=== PATIENT | female | born 1990 | race Caucasian/White ===

== ENCOUNTER 2018-07-23 05:59 | Inpatient (IN) ==
[2018-07-23] MEDS ORDERED: CITRIC ACID/SODIUM CITRATE 30 ML UDCUP PO ONE (06:35)
[2018-07-23] MEDS ORDERED: FAMOTIDINE 20 MG/2 ML VIAL IV ONE (06:35)
[2018-07-23 06:53] LABS: Basophils # 0.1 10*3/uL (0.0-0.2); Basophils % 0.5 % (0.0-0.8); Eosinophils # 0.1 10*3/uL (0.0-0.87); Eosinophils % 0.9 % (0.00-10.9); Hematocrit 38.2 VOL% (35.7-47.0); Hemoglobin 12.4 GM/DL (12.0-16.0); Immature Granulocytes % 1.1 %; Immature Granulocytes Absolute 0.14 #; Lymphocytes % 22.6 % (21.3-54.2); Mean Corpuscular HGB Conc 32.5 GM/DL (32-36); Mean Corpuscular Volume 90.3 FL (87-102); Mean Platelet Volume 9.6 FL (9.6-12.0); Neutrophils % 68.9 % (38.7-73.9); Platelet Count 361 T/CUMM (130-400); Red Blood Count 4.23 MC/CUMM (3.8-5.5); White Blood Count 13.1 T/CUMM (4-12)
[2018-07-23] MEDS ORDERED: BUPIVACAINE 0.5% 50 ML VIAL ONE (06:56)
[2018-07-23 07:12] LABS: Albumin 2.5 G/DL (3.4-5.0); Bilirubin,Total 0.4 MG/DL (0.2-1.0); Calcium 8.9 MG/DL (8.5-10.1); Osmolality,Calculated 280.1 MOS/KG (273-304); Total Protein 6.4 G/DL (6.4-8.3)
[2018-07-23] MEDS ORDERED: OXYTOCIN/LR 30 UNIT/1,000 ML BAG IV ONE (07:13)
[2018-07-23] MEDS ORDERED: OXYTOCIN 10 UNIT/ML VIAL IM ONE (07:13)
[2018-07-23] MEDS: LACTATED RINGERS 1,000 ML IV SCH ×3 (07:44→20:40)
[2018-07-23] MEDS ORDERED: CLINDAMYCIN INJ 900 MG in PREMIX 1 EACH IV ONE (08:00)
[2018-07-23] MEDS ORDERED: miSOPROStol 200 MCG TABLET ONE (08:10)
[2018-07-23] MEDS ORDERED: METHYLERGONOVINE 0.2 MG/1 ML AMP ONE (08:11)
[2018-07-23 09:35] LABS: Cord Arterial Blood HCO3 25.6 MMOL/L
[2018-07-23 09:39] LABS: Cord Venous Blood HCO3 24.9 MMOL/L; Cord Venous Blood PCO2 45.4 MMHG; Cord Venous Blood PO2 29.3
[2018-07-23 09:51] LABS: Apearance,Urine CLEAR (Clear); Bilirubin,Urine Negative (Negative); Blood, Urine Negative (Negative); Glucose,Urine (UA) Negative (Negative); Ketones,Urine Negative (Negative); Mucus,Urine Occasional /LPF (Occasional); Nitrite,Urine Negative (Negative); Protein,Urine Negative; RBC,Urine 3 /HPF (0-4); Squamous Epithelial Cell,Urine Occasional /HPF (0-10); Urine Color Yellow (Yellow); Urine Specific Gravity 1.013 (1.001-1.035); Urine Urobilinogen < 2.0 EU/DL (0.2-1.0); WBC,Urine <1 /HPF (0-6)
[2018-07-23] MEDS ORDERED: ACETAMINOPHEN 325 MG TABLET PO PRN (09:59)
[2018-07-23] MEDS ORDERED: ONDANSETRON 4 MG/2 ML VIAL IV PRN (09:59)
[2018-07-23] MEDS ORDERED: OXYTOCIN/LR 20 UNIT/1,000 ML BAG IV ONE (09:59)
[2018-07-23] MEDS ORDERED: RHO(D) IMMUNE GLOBULIN 300 MCG SYRINGE IM ONE (10:30)
[2018-07-23] MEDS ORDERED: fentaNYL 100 MCG/2 ML VIAL ONE (10:34)
[2018-07-23] MEDS ORDERED: MIDAZOLAM 2 MG/2 ML VIAL ONE (10:34)
[2018-07-23] MEDS ORDERED: SODIUM CHLORIDE 0.9% 100 ML IV ONE (10:34)
[2018-07-23] MEDS ORDERED: MORPHINE 10 MG/10 ML VIAL ONE (10:35)
[2018-07-23] MEDS ORDERED: BUPIVACAINE SPINAL 0.75% 2 ML AMP SPINAL ONE (10:35)
[2018-07-23] MEDS ORDERED: diphenhydrAMINE 50 MG/1 ML VIAL IV PRN (11:16)
[2018-07-23] MEDS ORDERED: hydrOXYzine HCL 25 MG/1 ML VIAL IM PRN (11:16)
[2018-07-23] MEDS ORDERED: HYDROmorphone 2 MG/1 ML VIAL ONE (11:28)
[2018-07-23] MEDS ORDERED: HYDROmorphone 2 MG/1 ML VIAL IV PRN (11:35)
[2018-07-23] MEDS: ceFAZolin 1,000 MG in SYRINGE 1 EACH IV SCH ×2 (16:11→23:40)
[2018-07-23] MEDS: IBUPROFEN 800 MG TABLET PO PRN (18:47)
[2018-07-23] MEDS: DOCUSATE SODIUM 100 MG CAPSULE PO SCH (21:05)
[2018-07-24] MEDS: LACTATED RINGERS 1,000 ML IV SCH (05:15)
[2018-07-24] MEDS: IBUPROFEN 800 MG TABLET PO PRN ×3 (05:16→23:13)
[2018-07-24 06:01] LABS: Basophils # 0.1 10*3/uL (0.0-0.2); Basophils % 0.3 % (0.0-0.8); Eosinophils % 0.2 % (0.00-10.9); Hematocrit 33.1 VOL% (35.7-47.0); Hemoglobin 10.9 GM/DL (12.0-16.0); Immature Granulocytes % 0.7 %; Immature Granulocytes Absolute 0.12 #; Lymphocytes # 4.4 10*3/uL (1.4-4.0); Lymphocytes % 24.1 % (21.3-54.2); Mean Corpuscular HGB Conc 32.9 GM/DL (32-36); Mean Corpuscular Volume 88.5 FL (87-102); Mean Platelet Volume 10.2 FL (9.6-12.0); Neutrophils % 68.7 % (38.7-73.9); Platelet Count 341 T/CUMM (130-400); Red Blood Count 3.74 MC/CUMM (3.8-5.5); Red Cell Distribution Width 13.9 % (9.3-17.3); White Blood Count 18.2 T/CUMM (4-12)
[2018-07-24] MEDS: SIMETHICONE CHEW 80 MG TABLET PO PRN ×2 (09:16→21:00)
[2018-07-24] MEDS: MULTIVITAMIN (PRENATAL) TABLET PO SCH (09:16)
[2018-07-24] MEDS: MAGNESIUM HYDROXIDE SUSP 30 ML UDCUP PO PRN ×2 (09:16→21:00)
[2018-07-24] MEDS: DOCUSATE SODIUM 100 MG CAPSULE PO SCH ×2 (09:16→21:00)
[2018-07-24] MEDS: METOCLOPRAMIDE 10 MG TABLET PO SCH ×2 (09:16→16:03)
[2018-07-24] MEDS ORDERED: ONDANSETRON 4 MG TABLET PO PRN (15:40)
[2018-07-25] MEDS: METOCLOPRAMIDE 10 MG TABLET PO SCH ×2 (00:31→09:47)
[2018-07-25] MEDS: MULTIVITAMIN (PRENATAL) TABLET PO SCH (09:47)
[2018-07-25] MEDS: DOCUSATE SODIUM 100 MG CAPSULE PO SCH (09:47)
[2018-07-25] MEDS: IBUPROFEN 800 MG TABLET PO PRN (09:47)
[2018-07-25] MEDS ORDERED: DIPH/TET/ACEL PERT BOOSTER VACCINE 0.5 ML VIAL IM ONE (09:52)
[2018-07-25 14:31] VITALS: BP 120/63
== END 2018-07-25 13:05 | disposition home or self-care (01) | DRG 788 ==
LOC: N.LD 05:59 → N.OB 13:35
PROVIDERS: ADMIT Obstetrics & Gynecology; ATTEND Obstetrics & Gynecology
PROC: LDCSECT (ICD-10-PCS; 2018-07-23 08:43)

== ENCOUNTER 2021-09-06 19:20 | Inpatient (IN) ==
[2021-09-06 22:14] LABS: Basophils # 0.1 10*3/uL (0.0-0.2); Basophils % 0.5 % (0.0-0.8); Eosinophils # 0.3 10*3/uL (0.0-0.87); Eosinophils % 2.5 % (0.00-10.9); Hematocrit 39.5 VOL% (35.7-47.0); Immature Granulocytes % 0.4 %; Immature Granulocytes Absolute 0.06 #; Lymphocytes # 5.2 10*3/uL (1.4-4.0); Lymphocytes % 38.7 % (21.3-54.2); Mean Corpuscular HGB Conc 32.9 GM/DL (32-36); Mean Corpuscular Volume 86.4 FL (87-102); Mean Platelet Volume 9.7 FL (9.6-12.0); Monocytes # 0.9 10*3/uL (0.11-0.8); Monocytes % 6.7 % (1.7-12.7); Neutrophils % 51.2 % (38.7-73.9); Platelet Count 441 T/CUMM (130-400); Red Blood Count 4.57 MC/CUMM (3.8-5.5); Red Cell Distribution Width 13.3 % (9.3-17.3); White Blood Count 13.4 T/CUMM (4-12)
[2021-09-06 22:24] LABS: INR 0.9; PT Patient Result 10.5 SECS (10.5-12.0)
[2021-09-06 22:41] LABS: Alanine Aminotransferase 25 U/L (13-56); Albumin 3.4 G/DL (3.4-5.0); Alkaline Phosphatase 71 U/L (45-117); Aspartate Amino Transferase 13 U/L (0-37); Bilirubin,Total < 0.39 MG/DL (0.20-1.00); Blood Urea Nitrogen 17 MG/DL (7-18); Calcium 8.8 MG/DL (8.5-10.1); Carbon Dioxide 27 MMOL/L (21-32); Chloride 109 MMOL/L (98-107); Glucose 92 MG/DL (74-106); Osmolality,Calculated 284.1 MOS/KG (273-304); Potassium 3.8 MMOL/L (3.5-5.1); Sodium 142 MMOL/L (136-145); Total Protein 7.2 G/DL (6.4-8.2)
[2021-09-06] MEDS ORDERED: VANCOMYCIN INJ 1,000 MG in SODIUM CHLORIDE 0.9% 250 ML IV STA (23:09)
[2021-09-06] MEDS ORDERED: ONDANSETRON 4 MG/2 ML VIAL IV PRN (23:57)
[2021-09-06] MEDS ORDERED: ACETAMINOPHEN 325 MG TABLET PO PRN (23:57)
[2021-09-07] MEDS ORDERED: VANCOMYCIN INJ 500 MG in SODIUM CHLORIDE 0.9% 100 ML IV ONE (01:00)
[2021-09-07 07:25] LABS: Basophils # 0.1 10*3/uL (0.0-0.2); Basophils % 0.8 % (0.0-0.8); Eosinophils # 0.3 10*3/uL (0.0-0.87); Eosinophils % 2.5 % (0.00-10.9); Hematocrit 40.6 VOL% (35.7-47.0); Hemoglobin 13.3 GM/DL (12.0-16.0); Immature Granulocytes % 0.4 %; Immature Granulocytes Absolute 0.04 #; Lymphocytes # 3.7 10*3/uL (1.4-4.0); Lymphocytes % 32.7 % (21.3-54.2); Mean Corpuscular HGB Conc 32.8 GM/DL (32-36); Mean Corpuscular Volume 85.3 FL (87-102); Mean Platelet Volume 9.5 FL (9.6-12.0); Monocytes # 0.8 10*3/uL (0.11-0.8); Monocytes % 6.7 % (1.7-12.7); Neutrophils % 56.9 % (38.7-73.9); Platelet Count 416 T/CUMM (130-400); Red Blood Count 4.76 MC/CUMM (3.8-5.5); Red Cell Distribution Width 13.2 % (9.3-17.3); White Blood Count 11.3 T/CUMM (4-12)
[2021-09-07 07:45] LABS: Alanine Aminotransferase 19 U/L (13-56); Albumin 3.3 G/DL (3.4-5.0); Alkaline Phosphatase 60 U/L (45-117); Aspartate Amino Transferase 9 U/L (0-37); Bilirubin,Total < 0.39 MG/DL (0.20-1.00); Blood Urea Nitrogen 13 MG/DL (7-18); Calcium 8.8 MG/DL (8.5-10.1); Carbon Dioxide 26 MMOL/L (21-32); Chloride 111 MMOL/L (98-107); Glucose 94 MG/DL (74-106); Osmolality,Calculated 276.5 MOS/KG (273-304); Potassium 4.2 MMOL/L (3.5-5.1); Sodium 139 MMOL/L (136-145); Total Protein 6.8 G/DL (6.4-8.2)
[2021-09-07] MEDS: PANTOPRAZOLE 40 MG TABLET PO SCH (08:24)
[2021-09-07] MEDS: cefTRIAXone 1,000 MG in SODIUM CHLORIDE 0.9% 100 ML IV SCH (08:24)
[2021-09-07] MEDS ORDERED: LIDOCAINE 1% 20 ML VIAL MISC INJ ONE (10:23)
[2021-09-07] MEDS ORDERED: HYDROmorphone 1 MG/1 ML SYRINGE IV PRN (10:43)
[2021-09-07] MEDS: VANCOMYCIN INJ 1,500 MG in SODIUM CHLORIDE 0.9% 500 ML IV SCH (12:22)
[2021-09-08] MEDS: VANCOMYCIN INJ 1,500 MG in SODIUM CHLORIDE 0.9% 500 ML IV SCH (01:09)
[2021-09-08 05:28] LABS: Basophils # 0.1 10*3/uL (0.0-0.2); Basophils % 0.7 % (0.0-0.8); Eosinophils # 0.3 10*3/uL (0.0-0.87); Eosinophils % 2.7 % (0.00-10.9); Hematocrit 39.8 VOL% (35.7-47.0); Immature Granulocytes % 0.6 %; Immature Granulocytes Absolute 0.06 #; Lymphocytes # 4.2 10*3/uL (1.4-4.0); Mean Corpuscular HGB Conc 32.7 GM/DL (32-36); Mean Corpuscular Volume 86.7 FL (87-102); Monocytes # 0.6 10*3/uL (0.11-0.8); Monocytes % 5.5 % (1.7-12.7); Neutrophils % 51.5 % (38.7-73.9); Platelet Count 395 T/CUMM (130-400); Red Blood Count 4.59 MC/CUMM (3.8-5.5); Red Cell Distribution Width 13.2 % (9.3-17.3); White Blood Count 10.7 T/CUMM (4-12)
[2021-09-08 05:45] LABS: Calcium 8.3 MG/DL (8.5-10.1); Osmolality,Calculated 282.1 MOS/KG (273-304)
[2021-09-08 07:50] VITALS: BP 126/89
[2021-09-08] MEDS: cefTRIAXone 1,000 MG in SODIUM CHLORIDE 0.9% 100 ML IV SCH (08:16)
[2021-09-08] MEDS: PANTOPRAZOLE 40 MG TABLET PO SCH (08:17)
== END 2021-09-08 10:45 | disposition home or self-care (01) | DRG 603 ==
LOC: N.TELES 19:20 → N.ED 19:20 → SUATTDRO 23:57 → N.TELES 09-07 02:51 → SUATTDRO 09-07 07:45
PROVIDERS: ADMIT Internal Medicine; ATTEND Internal Medicine